=== PATIENT | female | born 1930 | race Caucasian/White ===

== ENCOUNTER 2018-08-18 11:49 | Emergency (ER) | payer MEDICARE, OTHER ==
[~2018-08-18] VITALS: Ht 160 cm; Wt 59.0 kg
[2018-08-18 13:17] LABS: Basophils # (auto) 0.1 uL; Eosinophils # (auto) 0.2 uL; Eosinophils % (auto) 1.5 % (0.0-7.0); Hematocrit 46.1 % (36.0-46.0); Hemoglobin 15.4 g/dL (12.2-16.2); Lymphocytes # (auto) 1.8 uL; Lymphocytes % (auto) 17.2 % (10.0-50.0); Mean Corpuscular Hemoglobin 31.2 pg (28.0-32.0); Mean Corpuscular Hgb Conc. 33.4 g/dL (32.0-36.0); Mean Corpuscular Volume 93.6 fL (80.0-100.0); Monocytes # (auto) 1.1 uL; Neutrophils # (auto) 7.5 uL; Neutrophils % (auto) 70.3 % (37.0-80.0); Platelet Count (auto) 307 10^3/uL (140-450); Red Blood Cells 4.93 10^6/uL (4.0-5.20); White Blood Cell 10.7 10^3/uL (4.4-10.8)
[2018-08-18 13:34] LABS: Calcium 9.3 mg/dL (8.5-10.1); Potassium 3.6 mmol/L (3.5-5.1)
[2018-08-18 13:37] LABS: BUN/Creatinine Ratio 17.9; Bilirubin, Total 0.7 mg/dL (0.2-1.0); Total Protein 7.6 g/dL (6.4-8.2)
[2018-08-18] MEDS ORDERED: ETOMIDATE (2MG/ML) 20ML VIAL IV ONE (16:30)
[2018-08-18 19:10] VITALS: BP 188/91
== END 2018-08-18 19:18 | disposition home or self-care (01) ==
LOC: ER 11:58
DX: S43.005A Unspecified dislocation of left shoulder joint, initial encounter (principal); S50.02XA Contusion of left elbow, initial encounter; I10 Essential (primary) hypertension; Z88.0 Allergy status to penicillin; W19.XXXA Unspecified fall, initial encounter; Y93.89 Activity, other specified; Y99.8 Other external cause status; Y92.009 Unspecified place in unspecified non-institutional (private) residence as the place of occurrence of the external cause
CPT/HCPCS: 23650; 36415; 71045; 73020; 73030; 73070; 80053; 85025; 93005; 99152; 99285; J7030; 73100